=== PATIENT | male | born 2005 | race Caucasian/White ===

== ENCOUNTER 2025-04-17 07:42 | Emergency (ER) | payer MEDICAID, OTHER ==
[2025-04-17] MEDS: Tetracaine HCl/PF 0.5% 4 ML Bottle EYELF ONE (08:00)
== END 2025-04-17 08:19 | disposition home or self-care (01) ==
LOC: LB.ED 07:42
DX: S05.02XA Injury of conjunctiva and corneal abrasion without foreign body, left eye, initial encounter (principal); X58.XXXA Exposure to other specified factors, initial encounter
CPT/HCPCS: 99283